=== PATIENT | male | born 1985 | race Caucasian/White ===

== ENCOUNTER 2017-12-20 10:58 | Emergency (ER) | payer MEDICAID ==
[~2017-12-20] VITALS: Ht 185.4 cm; Wt 69.4 kg
[2017-12-20 11:05] VITALS: BP 127/84
--- NOTE | 2017-12-20 11:10 | NUR ---
Patient ambulated to bed 3. RN evaluating patient at bedside.
--- NOTE | 2017-12-20 11:23 | NUR ---
32 yo m bib self with c/o various patches of dry skin with redness/swelling to frontal torso region x 2 wks. Patient sts father had previous staph infection and was in contact with him during infection and just wants to make sure his rash is unrelated. Patient denies any fevers or pruritis. No discharge noted. Redness and swelling noted to wounds. Pt aaox4. gcs 15. cms intact. rr even and unlabored. lungs bilaterally clear. abd soft, non-tender. er md notified. pt needs met. safety precautions in place. will continue to monitor.
--- NOTE | 2017-12-20 11:24 | NUR ---
Dr. Meadows evaluating patient at bedside.
== END 2017-12-20 11:32 | disposition home or self-care (01) ==
LOC: MED 10:58
DX: L03.313 Cellulitis of chest wall (principal); B96.89 Other specified bacterial agents as the cause of diseases classified elsewhere; Z88.1 Allergy status to other antibiotic agents
CPT/HCPCS: 99283

== ENCOUNTER 2018-02-17 12:38 | Emergency (ER) | payer MEDICAID ==
[~2018-02-17] VITALS: Ht 185.4 cm; Wt 65.8 kg
[2018-02-17 12:41] VITALS: BP 135/87
--- NOTE | 2018-02-17 12:45 | NUR ---
Patient ambulated to bed 1. RN evaluating patient at bedside.
--- NOTE | 2018-02-17 12:50 | NUR ---
PT. CAME INTO THE ED DUE TO PENILE DISCHARGE X 10 DAYS. PT STATES " I HAVE BEEN HAVING SOME DISCHARGE FOR ABOUT 10 DAYS IT IS GREEN". PT. DENIES ANY FEVER AT THIS TIME. DENIES ANY PAIN. ER MD NOTIFIED. SAFETY PRECAUTIONS IMPLEMENTED. WILL CONTINUE TO MONITOR.
[2018-02-17] MEDS ORDERED: AZITHROMYCIN 250 MG TAB PO ONE (12:55)
[2018-02-17] MEDS ORDERED: cefTRIAXone 250 MG in LIDOCAINE MPF 1% - 5 mL VIAL 0.9 ML IM ONE (12:55)
--- NOTE | 2018-02-17 12:57 | NUR ---
Dr. Benedict re-evaluating patient at bedside.
[2018-02-17 13:27] VITALS: BP 132/86
--- NOTE | 2018-02-17 13:27 | NUR ---
Patient discharged with v/s stable. Written and verbal after care instructions given and explained. Patient alert, oriented and verbalized understanding of instructions. Ambulatory with steady gait. All questions addressed prior to discharge. ID band removed. Patient advised to follow up with PMD. Rx of DOXYCYCLINE 100MG given. Patient educated on indication of medication including possible reaction and side effects. Opportunity to ask questions provided and answered.
== END 2018-02-17 13:27 | disposition home or self-care (01) ==
LOC: MED 12:38
DX: N34.2 Other urethritis (principal); Z88.1 Allergy status to other antibiotic agents; Z88.8 Allergy status to other drugs, medicaments and biological substances
CPT/HCPCS: 96372; 99283; J0696; J2001

== ENCOUNTER 2020-02-07 13:20 | Emergency (ER) | payer MEDICAID, OTHER ==
[~2020-02-07] VITALS: Ht 185.4 cm; Wt 70.3 kg
--- NOTE | 2020-02-07 13:20 | NUR ---
ambulated to bed 06 with steady gait.
[2020-02-07 13:22] VITALS: BP 122/85
--- NOTE | 2020-02-07 13:25 | NUR ---
34 year old male c/o hematochezia x 2 weeks. states it is on and off and trickles of blood seen when pooping. denies any other s/sx. denies any injury or trauma. pmhx: denies allx: amoxicillin, codeine
--- NOTE | 2020-02-07 13:30 | NUR ---
Dr. Henriquez assessing pt.
[2020-02-07 13:39] VITALS: BP 118/83
--- NOTE | 2020-02-07 14:00 | NUR ---
Patient discharged with v/s stable. Written and verbal after care instructions given and explained. Patient alert, oriented and verbalized understanding of instructions. Ambulatory with steady gait. All questions addressed prior to discharge. ID band removed. Patient advised to follow up with PMD. Rx of preparation H and colace given. Patient educated on indication of medication including possible reaction and side effects. Opportunity to ask questions provided and answered.
== END 2020-02-07 14:00 | disposition home or self-care (01) ==
LOC: MED 13:20
DX: K64.8 Other hemorrhoids (principal); Z88.1 Allergy status to other antibiotic agents; Z88.6 Allergy status to analgesic agent
CPT/HCPCS: 99282

== ENCOUNTER 2020-04-20 20:06 | Emergency (ER) | payer OTHER ==
[~2020-04-20] VITALS: Ht 188 cm; Wt 68.5 kg
[2020-04-20 20:17] VITALS: BP 136/85
--- NOTE | 2020-04-20 20:20 | NUR ---
PT AMBULATED TO BED 05 WITH STEADY GAIT.
--- NOTE | 2020-04-20 20:45 | NUR ---
34 Y/O MALE C/O BURNING AND FREQUENT URINATION X 1 MONTH. PT STATES HE WANTS TO GET TESTED FOR STDs. DENIES PAIN AT THIS TIME. MHX: DENIES ALLERGIES: AMOXICILLIN, CODEINE
--- NOTE | 2020-04-20 20:56 | NUR ---
ERMD AT BEDSIDE EVALUATING PT
--- NOTE | 2020-04-20 21:17 | NUR ---
URINE COLLECTED AND SENT TO LAB
[2020-04-20 22:02] VITALS: BP 136/85
--- NOTE | 2020-04-20 22:02 | NUR ---
Patient discharged with v/s stable. Written and verbal after care instructions given and explained. Patient alert, oriented and verbalized understanding of instructions. Ambulatory with steady gait. All questions addressed prior to discharge. ID band removed. Patient advised to follow up with PMD. Rx of PHENAZOPYRIDINE HYDROCHLORIDE given. Patient educated on indication of medication including possible reaction and side effects. Opportunity to ask questions provided and answered.
[2020-04-24 06:07] LABS: CHLAMYDIA TRACHOMATIS AMP DNA Negative (Negative)
== END 2020-04-20 22:02 | disposition home or self-care (01) ==
LOC: MED 20:06
DX: R30.0 Dysuria (principal); Z88.1 Allergy status to other antibiotic agents; Z88.5 Allergy status to narcotic agent
CPT/HCPCS: 36415; 81002; 87491; 99283

== ENCOUNTER 2020-06-29 11:19 | Emergency (ER) | payer OTHER ==
[~2020-06-29] VITALS: Ht 188 cm; Wt 70.3 kg
[2020-06-29 11:34] VITALS: BP 122/50
--- NOTE | 2020-06-29 11:37 | NUR ---
35YO M C/O RASHES ON LEFT LEG X 1 DAY, (+)PRURITUS, (-)PAIN. PT CONCERNED THAT RASHES ARE FROM GH BOOSTER AND TESTOSTERONE PILLS WHICH HE HAS BEEN TAKING FOR 2 WEEKS. DENIES FEVER. DENIES ANY OTHER SYMPTOMS. IN ED, VSS. CLEAR BREATH SOUNDS. WITH MULTIPLE FLAT, RED LESIONS ON LEFT LEG AND RIGHT TRUNK AREA. PT POSITIONED IN BED COMFORTABLY. ERMD MADE AWARE OF PT STATUS. PMH: NONE ALLERGIES: AMOXICILLIN, CODEINE
[2020-06-29 12:30] VITALS: BP 122/50
--- NOTE | 2020-06-29 12:30 | NUR ---
Patient discharged with v/s stable. Written and verbal after care instructions given and explained. Patient alert, oriented and verbalized understanding of instructions. Ambulatory with steady gait. All questions addressed prior to discharge. ID band removed. Patient advised to follow up with PMD. Rx of PREDNISONE, BENADRYL given. Patient educated on indication of medication including possible reaction and side effects. Opportunity to ask questions provided and answered.
== END 2020-06-29 12:30 | disposition home or self-care (01) ==
LOC: MED 11:19
DX: R21 Rash and other nonspecific skin eruption (principal); Z88.1 Allergy status to other antibiotic agents; Z88.5 Allergy status to narcotic agent
CPT/HCPCS: 99283

== ENCOUNTER 2022-03-19 23:15 | Emergency (ER) | payer MEDICAID, OTHER ==
[~2022-03-19] VITALS: Ht 188 cm; Wt 74.6 kg
[2022-03-19 23:27] VITALS: BP 125/92
--- NOTE | 2022-03-19 23:34 | NUR ---
pt to the bathroom for urine collection
--- NOTE | 2022-03-19 23:36 | NUR ---
PT TO THE LOBBY
--- NOTE | 2022-03-20 00:31 | NUR ---
PATIENT AMBULATED TO BED 9
[2022-03-20 01:00] LABS: APPEARANCE,URINE CLEAR (CLEAR); BILIRUBIN,URINE NEGATIVE (NEGATIVE); BLOOD, URINE NEGATIVE (NEGATIVE); COLOR,URINE YELLOW (YELLOW); LEUKOCYTE ESTERASE ,URINE NEGATIVE (NEGATIVE); NITRITE, URINE NEGATIVE (NEGATIVE); PH,URINE 6.5 (5.0-9.0); UGLUCOSE NEGATIVE (NEGATIVE)
[2022-03-20] MEDS ORDERED: PYR100 PO (01:23)
[2022-03-20] MEDS ORDERED: DOXY-690 PO (01:23)
[2022-03-20 01:30] VITALS: BP 125/92
--- NOTE | 2022-03-20 01:30 | NUR ---
Patient discharged with v/s stable. Written and verbal after care instructions given and explained. Patient alert, oriented and verbalized understanding of instructions. Ambulatory with steady gait. All questions addressed prior to discharge. ID band removed. Patient advised to follow up with PMD. Rx of VIBRAMYCIN AND PYRIDIUM given. Patient educated on indication of medication including possible reaction and side effects. Opportunity to ask questions provided and answered.
== END 2022-03-20 01:30 | disposition home or self-care (01) ==
LOC: MED 23:15
DX: R30.0 Dysuria (principal); F17.290 Nicotine dependence, other tobacco product, uncomplicated; Z88.1 Allergy status to other antibiotic agents; Z88.5 Allergy status to narcotic agent
CPT/HCPCS: 81003; 87491; 99283

== ENCOUNTER 2022-09-24 04:40 | Emergency (ER) | payer MEDICAID ==
[~2022-09-24] VITALS: Ht 185.4 cm; Wt 78.9 kg
[~2022-09-24 04:40] MED LIST: DOXY-690 PO; PYR100 PO
[2022-09-24 04:51] VITALS: BP 157/95
[2022-09-24 04:55] VITALS: BP 157/95
--- NOTE | 2022-09-24 04:59 | NUR ---
PT AMBULATED TO BED #5
--- NOTE | 2022-09-24 05:05 | NUR ---
37 Y/O M PRESENTS WITH A SORE ON PELVIS AREA DENIES ANY PAIN AT THE MOMENT WITH A BLACK SORE IN THE MOUTH WITH NO PAIN. PT STATED HE HAD A NEW SEUAL PARTNER X1 WEEK AGO AND SUDDENLY HAD THESE FINDINGS. PT IS A&OX4, SKIN INTACT, RESPIRATIONS EVEN AND UNLABORED. PMH-PT DENIES ALLERGIES-AMOXICILLIN, CODEINE
--- NOTE | 2022-09-24 05:07 | NUR ---
UA COLLECTED AND SENT TO LAB
--- NOTE | 2022-09-24 05:15 | NUR ---
ER AT BEDSIDE
[2022-09-24 06:11] LABS: APPEARANCE,URINE CLEAR (CLEAR); BILIRUBIN,URINE NEGATIVE (NEGATIVE); BLOOD, URINE NEGATIVE (NEGATIVE); COLOR,URINE YELLOW (YELLOW); LEUKOCYTE ESTERASE ,URINE NEGATIVE (NEGATIVE); NITRITE, URINE NEGATIVE (NEGATIVE); PH,URINE 7.5 (5.0-9.0); UGLUCOSE NEGATIVE (NEGATIVE)
--- NOTE | 2022-09-24 06:29 | NUR ---
Patient discharged with v/s stable. Written and verbal after care instructions given and explained. Patient verbalized understanding. Ambulatory with steady gait. All questions addressed prior to discharge. Advised to follow up with PMD.
== END 2022-09-24 06:29 | disposition home or self-care (01) ==
LOC: MED 04:40
DX: K12.0 Recurrent oral aphthae (principal); Z79.899 Other long term (current) drug therapy; Z79.2 Long term (current) use of antibiotics; Z88.0 Allergy status to penicillin; Z88.5 Allergy status to narcotic agent
CPT/HCPCS: 81003; 87491; 99283

== ENCOUNTER 2022-09-27 23:36 | Emergency (ER) | payer MEDICAID ==
[~2022-09-27] VITALS: Ht 185.4 cm; Wt 79.4 kg
[2022-09-27 23:47] VITALS: BP 146/83
--- NOTE | 2022-09-28 | NUR ---
PT TO 5
--- NOTE | 2022-09-28 00:02 | NUR ---
CAROLYN OJEDA examining patient
[2022-09-28] MEDS ORDERED: LIDOCAINE 1% 500 MG/ 50 ML VIAL INJ ONE (00:05)
[2022-09-28] MEDS ORDERED: LIDOCAINE MPF 1% 5 ML ONE (00:08)
--- NOTE | 2022-09-28 00:11 | NUR ---
37 yo/m presents to ED w c/o L pointer finger lac pain 08/15, x approx 3 hours s/p picking up a crate that had a blade under and injuring L pointer finger. lac approximately 1 inch long, bleeding only upon movement. + rom, + sensation. pmh: denies allrgies: amoxicillin, codiene
[2022-09-28] MEDS ORDERED: SULF-59 PO (00:50)
[2022-09-28] MEDS ORDERED: BACITRACIN OINT 500 UNITS/GM PKT TP ONE (00:55)
--- NOTE | 2022-09-28 01:18 | NUR ---
Patient discharged. Written and verbal after care instructions given and explained. Patient alert, oriented and verbalized understanding of instructions. Ambulatory with steady gait. All questions addressed prior to discharge. ID band removed. Patient advised to follow up with PMD. Rx of Bactrim Ds Tablet given. Patient educated on indication of medication including possible reaction and side effects. Opportunity to ask questions provided and answered.
== END 2022-09-28 01:18 | disposition home or self-care (01) ==
LOC: MED 23:36
DX: S61.211A Laceration without foreign body of left index finger without damage to nail, initial encounter (principal); Z88.1 Allergy status to other antibiotic agents; Z88.5 Allergy status to narcotic agent; Z79.899 Other long term (current) drug therapy; W26.8XXA Contact with other sharp object(s), not elsewhere classified, initial encounter; Y93.89 Activity, other specified; Y92.89 Other specified places as the place of occurrence of the external cause; Y99.8 Other external cause status
CPT/HCPCS: 12001; 90471; 90715; 99283; J2001

== ENCOUNTER 2023-02-22 11:38 | Emergency (ER) | payer MEDICAID ==
[~2023-02-22] VITALS: Ht 188 cm; Wt 79.4 kg
[~2023-02-22 11:38] MED LIST changes: +SULF-59 PO
[2023-02-22 12:14] VITALS: BP 140/77; PULSE 64; RESP 18; TEMP 97.6; O2SAT 100
[2023-02-22 13:10] LABS: APPEARANCE,URINE CLEAR (CLEAR); BILIRUBIN,URINE NEGATIVE (NEGATIVE); BLOOD, URINE NEGATIVE (NEGATIVE); COLOR,URINE YELLOW (YELLOW); LEUKOCYTE ESTERASE ,URINE 1+ (NEGATIVE); NITRITE, URINE NEGATIVE (NEGATIVE); PROTEIN,URINE NEGATIVE (NEGATIVE); UGLUCOSE NEGATIVE (NEGATIVE); UROBILINOGEN,URINE 0.2 EU/dL (0.2 - 1)
[2023-02-22] MEDS ORDERED: AZITHROMYCIN 250 MG TAB PO ONE (13:10)
[2023-02-22] MEDS ORDERED: GENTAMICIN 80 MG/2 ML VIAL IM ONE (13:10)
[2023-02-22 13:22] LABS: BACTERIA,URINE OCCASSIONAL /HPF (None Seen); RBC,URINE 0-5 /HPF (0-5); SQUAMOUS EPITHELIAL CELL,UR 0-3 (FEW) /LPF (0-3 (FEW))
[2023-02-22 13:25] LABS: WBC,URINE 0-5 /HPF (0-5)
[2023-02-22 14:00] VITALS: BP 133/77; PULSE 64; RESP 18; TEMP 98; O2SAT 100
== END 2023-02-22 14:00 | disposition home or self-care (01) ==
LOC: MED 11:38
DX: R36.9 Urethral discharge, unspecified (principal); R30.0 Dysuria; Z88.1 Allergy status to other antibiotic agents; Z88.5 Allergy status to narcotic agent; Z79.899 Other long term (current) drug therapy
CPT/HCPCS: 81001; 87086; 87491; 96372; 99283; J1580

== ENCOUNTER 2023-06-11 11:23 | Emergency (ER) | payer MEDICAID ==
[~2023-06-11] VITALS: Ht 172.7 cm; Wt 72.6 kg
[2023-06-11 11:55] VITALS: BP 143/90; PULSE 89; RESP 18; TEMP 98.6; O2SAT 98
[2023-06-11 12:30] LABS: FLU A ANTIGEN negative (NEGATIVE); FLU B ANTIGEN NEGATIVE (NEGATIVE)
[2023-06-11] MEDS ORDERED: BENZ200C4 PO (12:33)
== END 2023-06-11 12:40 | disposition home or self-care (01) ==
LOC: MED 11:23
DX: J06.9 Acute upper respiratory infection, unspecified (principal); Z20.822 Contact with and (suspected) exposure to COVID-19; R03.0 Elevated blood-pressure reading, without diagnosis of hypertension; Z79.899 Other long term (current) drug therapy
CPT/HCPCS: 96361; 96374; 99283; 99285

== ENCOUNTER 2023-06-14 12:14 | Emergency (ER) | payer MEDICAID ==
[~2023-06-14] VITALS: Ht 188 cm; Wt 81.6 kg
[~2023-06-14 12:14] MED LIST changes: +BENZ200C4 PO
[2023-06-14 12:47] VITALS: BP 124/77; PULSE 85; RESP 20; TEMP 97.6; O2SAT 99
[2023-06-14] MEDS ORDERED: AZIT250T4 PO (14:08)
[2023-06-14] MEDS ORDERED: BPM/473S94 PO (14:08)
[2023-06-14 14:13] VITALS: BP 124/77; PULSE 85; RESP 20; TEMP 97.6
[2023-06-14 14:58] VITALS: O2SAT 99
== END 2023-06-14 14:13 | disposition home or self-care (01) ==
LOC: MED 12:14
DX: J40 Bronchitis, not specified as acute or chronic (principal); Z79.899 Other long term (current) drug therapy; Z79.2 Long term (current) use of antibiotics; Z88.0 Allergy status to penicillin; Z88.5 Allergy status to narcotic agent
CPT/HCPCS: 71045; 99283

== ENCOUNTER 2024-01-13 18:40 | Emergency (ER) | payer MEDICAID ==
[~2024-01-13] VITALS: Ht 188 cm; Wt 61.7 kg
[~2024-01-13 18:40] MED LIST changes: +AZIT250T4 PO; +BPM/473S94 PO
[2024-01-13 18:46] VITALS: BP 164/107; PULSE 87; RESP 19; TEMP 97.6; O2SAT 99
[2024-01-13] MEDS ORDERED: ATA25 PO (23:14)
== END 2024-01-13 19:42 | disposition left against medical advice (07) ==
LOC: MED 18:40
DX: R51.9 Headache, unspecified (principal); R53.83 Other fatigue; Z53.21 Procedure and treatment not carried out due to patient leaving prior to being seen by health care provider

== ENCOUNTER 2024-01-13 21:33 | Emergency (ER) | payer MEDICAID ==
[~2024-01-13] VITALS: Ht 188 cm; Wt 61.7 kg
[2024-01-13 21:55] VITALS: BP 135/100; PULSE 85; RESP 16; TEMP 97.6; O2SAT 99
[2024-01-13] MEDS: LORazepam 1 MG TAB PO ONE (22:46)
[2024-01-13] MEDS ORDERED: ATA25 PO (23:14)
== END 2024-01-13 23:28 | disposition home or self-care (01) ==
LOC: MED 21:33
DX: R53.83 Other fatigue (principal); R00.2 Palpitations; R53.1 Weakness; F41.9 Anxiety disorder, unspecified; R51.9 Headache, unspecified; F12.90 Cannabis use, unspecified, uncomplicated; Z79.899 Other long term (current) drug therapy; Z88.0 Allergy status to penicillin; Z88.5 Allergy status to narcotic agent
CPT/HCPCS: 93005; 99283